=== PATIENT | female | born 1990 | race Caucasian/White ===

== ENCOUNTER 2019-04-05 10:51 | Outpatient (CLI) | payer OTHER ==
--- NOTE | 2019-04-05 11:50 | ULT ---
Exam: Pelvic ultrasound HISTORY: Pelvic pain COMPARISON: None TECHNIQUE: Multiple grayscale and color Doppler images were obtained in a transabdominal and transvag inal pelvic ultrasound. Spectral analysis of the Doppler waveforms of the ovaries were performed. FINDINGS: CERVIX: Heterogeneous material is seen in the endocervical canal with small amount of fluid. This cou ld potentially represent small amount of hemorrhage. UTERUS: Normal in size without focal abnormality. ENDOMETRIAL STRIPE: 7 mm which is within normal limits for a normal menstruating female patient. Ther e is suggestion of trace amount of free fluid seen in the endometrial canal lower uterine segment. No fluid collection is seen in the endometrial canal. Small amount free fluid is present in the pelvis. RIGHT OVARY: Normal flow, without focal mass. LEFT OVARY: Normal flow, without focal mass. There are dilated vessels in each adnexal region. IMPRESSION: 1. Heterogeneous material and fluid within the endocervical canal which could be related to small josseline unt of hemorrhage. 2. Tiny amount of fluid seen within the endometrial central canal lower uterine segment. Endometrial stripe measures 7 mm. 3. Normal appearing bilateral ovaries. 4. Dilated vascular structures in each adnexal region.. 5. Small amount of free fluid in the pelvis which may be physiologic.
== END 2019-04-05 10:52 | disposition home or self-care (01) ==
LOC: BICULT 10:51
PROVIDERS: ATTEND Nurse Practitioner Women's Health
DX: R10.2 Pelvic and perineal pain (principal); N83.8 Other noninflammatory disorders of ovary, fallopian tube and broad ligament
CPT/HCPCS: 76856

== ENCOUNTER 2019-09-05 13:47 | Outpatient (CLI) | payer MEDICAID ==
--- NOTE | 2019-09-05 14:28 | ULT ---
ULTRASOUND OBSTETRICAL COMPLETE: DATE: 09/05/2019 HISTORY: 29-year-old female. Evaluate anatomy. FINDINGS: number: Nicole lie: Cephalic Maternal cervix: 4.5 cm. Closed. Placenta: Anterior. No placenta previa. Amniotic fluid volume: NEO = 10.5 cm heart rate: 152 bpm The following anatomy is visualized, with no evidence of anomalies: Head, cerebellum, lateral ventricles, four-chamber heart, stomach, kidneys, cord insertion, bladder, cervical spine, thoracic spine, lumbar spine, sacrum, nose and lips, upper extremities, lower extremities, and three-vessel cord. biometry: Biparietal diameter (BPD): 4.9 cm 20 w 5 d Head circumference (HC): 18.6 cm 21 w 0 d Abdominal circumference (AC): 16.1 cm 21 w 2 d Femur length (FL): 3.8 cm 22 w 1 d Average ultrasound age (AUA): 21 w 2 d Estimated date of delivery (CHAD): 01/14/2020 Estimated weight (EFW): 428 g +/- 63 g IMPRESSION: 1) Live 2nd trimester intrauterine gestation. 2) Estimated gestational age of 21 weeks, 2 days 3) cephalic lie. 4) no anatomic abnormality identified.
== END 2019-09-05 13:48 | disposition home or self-care (01) ==
LOC: BICULT 13:47
PROVIDERS: ATTEND Family Medicine
DX: Z34.82 Encounter for supervision of other normal pregnancy, second trimester (principal); Z3A.21 21 weeks gestation of pregnancy
CPT/HCPCS: 76805

== ENCOUNTER 2020-01-10 15:32 | Inpatient (IN) | payer MEDICAID, SELFPAY ==
[~2020-01-10 15:32] MED LIST: Bupivacaine 0.25% HCL 30 ML VIAL ONE
[2020-01-10] MEDS ORDERED: hydrALAZINE 20 MG/ML VIAL SLOW IVP PRN ×2 (16:20→22:44)
[2020-01-10] MEDS ORDERED: Ibuprofen 800 MG TAB PO PRN (16:20)
[2020-01-10] MEDS ORDERED: Ondansetron PF 4 MG/2 ML Vial IVP PRN ×3 (16:20→22:44)
[2020-01-10] MEDS ORDERED: Carboprost 250 MCG/ML AMP IM PRN (16:20)
[2020-01-10] MEDS ORDERED: Lidocaine 1% (PF) 30 ML VIAL SC PRN (16:20)
[2020-01-10] MEDS ORDERED: Methylergonovine 0.2 MG/ML VIAL IM PRN (16:20)
[2020-01-10] MEDS ORDERED: Butorphanol Tartrate 1 MG/ML VIAL SLOW IVP PRN (16:20)
[2020-01-10] MEDS ORDERED: Promethazine HCl 25 MG/ML VIAL IM PRN ×2 (16:20→18:20)
[2020-01-10] MEDS ORDERED: HYDROcodone/Acetaminophen 5/325 mg Tablet PO PRN ×2 (16:20→22:44)
[2020-01-10] MEDS ORDERED: Misoprostol 200 MCG TAB PR PRN (16:20)
[2020-01-10] MEDS ORDERED: Diphenoxylate HCl/Atropine Tablet PO PRN (16:20)
[2020-01-10] MEDS ORDERED: NS w/ Oxytocin 10 units 500 ML IV SCH ×2 (16:30)
[2020-01-10] MEDS ORDERED: Lactated Ringer's 1,000 ML IV SCH (16:30)
[2020-01-10 17:05] VITALS: BMI 31.8
[2020-01-10 17:28] LABS: Hemoglobin 11.9 g/dL (12.0-16.0); Mean Corpuscular HGB CONC 34.3 g/dL (32.0-36.0); Mean Corpuscular Hemoglobin 33.8 pg (27.0-31.0); Mean Corpuscular Volume 98.5 fL (78.0-98.0); Mean Platelet Volume 9.8 fL (7.4-10.4); Platelet Count 163 thou/uL (130-400); RBC Distribution Width 12.1 % (11.5-14.5); Red Blood Cell (RBC) Count 3.51 mill/uL (4.20-5.40); White Blood Cell (WBC) Count 7.6 thou/uL (4.8-10.8)
[2020-01-10] MEDS ORDERED: Fentanyl 4 mcg/Bup 0.1% Cadd 100 ML in Premix Bag 1 BAG EPIDURAL SCH (17:45)
[2020-01-10 18:07] LABS: HBSAg Index 0.21 S/CO (0-0.99); Hep B Surf Ag Non-Reactive S/CO (NonReactive); Syphilis Antibody Nonreactive (Nonreactive); Syphilis Antibody Index 0.03 S/CO (<1.00 Non-Reactive)
[2020-01-10] MEDS ORDERED: diphenhydrAMINE 50 MG/ML VIAL IVP PRN (18:20)
[2020-01-10] MEDS ORDERED: Naloxone HCl 0.4 mg/ml Vial IVP PRN ×2 (18:20)
[2020-01-10] MEDS ORDERED: Acetaminophen 325 MG TAB PO PRN (18:20)
[2020-01-10] MEDS ORDERED: Lactated Ringer's 500 ML IV PRN (18:20)
[2020-01-10] MEDS ORDERED: ePHEDrine 50 MG/ML VIAL SLOW IVP PRN (18:20)
[2020-01-10] MEDS ORDERED: Fentanyl 4 mcg/Bupivacaine 0.1% Cassette 100 ML EPIDURAL SCH (18:30)
[2020-01-10] MEDS ORDERED: Communication Order-Pharmacy FS SCH (18:30)
[2020-01-10] MEDS: NS / Oxytocin 40 units/1000ml 1,000 ML IV PRN ×2 (20:15→22:38)
[2020-01-10] MEDS ORDERED: Milk Of Magnesia 30 ML UDCUP PO PRN (22:44)
[2020-01-10] MEDS ORDERED: Bisacodyl 10 MG SUPP PR PRN (22:44)
[2020-01-10] MEDS ORDERED: Lanolin Ointment 7 GM TUBE TOP PRN (22:44)
[2020-01-10] MEDS ORDERED: NS / Oxytocin 40 units/1000ml 1,000 ML IV SCH (22:44)
[2020-01-10] MEDS ORDERED: diphenhydrAMINE 25 MG CAP PO PRN (22:44)
[2020-01-10] MEDS ORDERED: Benzocaine-Menthol 82.5 ML CAN TOP PRN (22:44)
[2020-01-10] MEDS ORDERED: Preparation H Ointment 28 GM TUBE PR PRN (22:44)
[2020-01-10] MEDS ORDERED: Ibuprofen 800 MG TAB PO SCH (23:00)
[2020-01-10] MEDS ORDERED: Docusate Calcium (SURFAK) 240 MG CAP PO SCH (23:00)
[2020-01-11] MEDS: Ibuprofen 800 MG TAB PO SCH ×3 (05:38→21:28)
[2020-01-11] MEDS ORDERED: FLU VACC QS2020-21(6MOS UP)/PF 60 MCG/0.5 ML SYRINGE IM ONE (09:00)
[2020-01-11] MEDS ORDERED: Adacel (T-DAP) 0.5 ML SYRINGE IM ONE (09:00)
[2020-01-11] MEDS: Ferrous Sulfate 325 MG TAB PO SCH ×2 (09:19→16:39)
[2020-01-11] MEDS: Docusate Calcium (SURFAK) 240 MG CAP PO SCH ×2 (09:25→21:28)
[2020-01-11] MEDS: Prenatal Vitamin 1 TAB PO SCH (09:25)
[2020-01-11] MEDS: HYDROcodone/Acetaminophen 5/325 mg Tablet PO PRN ×2 (09:26→17:13)
[2020-01-12] MEDS: Ibuprofen 800 MG TAB PO SCH ×2 (05:05→13:40)
[2020-01-12] MEDS: Prenatal Vitamin 1 TAB PO SCH (08:46)
[2020-01-12] MEDS: Docusate Calcium (SURFAK) 240 MG CAP PO SCH (08:46)
[2020-01-12] MEDS: Ferrous Sulfate 325 MG TAB PO SCH (08:47)
[2020-01-12 09:23] VITALS: BP 112/55; TEMP 98.2
== END 2020-01-12 15:00 | disposition home or self-care (01) | DRG 807 ==
LOC: L&D 15:32 → 3SW 23:31
PROVIDERS: ADMIT Family Medicine; ATTEND Family Medicine
PROC: 10E0XZZ Delivery of Products of Conception, External Approach (ICD-10-PCS; principal; 2020-01-10)
PROC: 10907ZC Drainage of Amniotic Fluid, Therapeutic from Products of Conception, Via Natural or Artificial Opening (ICD-10-PCS; 2020-01-10)
DX: O80 Encounter for full-term uncomplicated delivery (principal); Z37.0 Single live birth; Z3A.38 38 weeks gestation of pregnancy
CPT/HCPCS: 36415; 51702; 85027; 86780; 86850; 86900; 86901; 87340; J2590; S0020